=== PATIENT | female | born 2000 | race African-American/Black ===

== ENCOUNTER 2019-03-31 13:58 | Emergency (ER) | payer OTHER, SELFPAY ==
[2019-03-31 14:50] VITALS: BP 124/72; PULSE 82; RESP 18; TEMP 36.9; O2SAT 100; BMI 31.6
[2019-03-31 15:32] LABS: Influenza A - CEPHEID Flu A NEGATIVE (NEGATIVE); Influenza B - CEPHEID Flu B NEGATIVE (NEGATIVE)
--- NOTE | 2019-03-31 19:58 | ED.URI ---
HPI - URI/Sore Throat General Chief Complaint: Upper Respiratory Symptoms Stated Complaint: Cold Source: patient Mode of arrival: Ambulatory Limitations: no limitations History of Present Illness HPI Narrative: The patient is a 19-year-old female nonsmoker with a chief complaint of cold for several days. She has a 3 day history of flu-like symptoms, denies vomiting or diarrhea, complains of slight nausea. Complains of low-grade fevers as well as nasal congestion and ear pressure. She also complains of sore throat. She states that she has a cough, that is nonproductive or occasionally productive. Denies chest pain or shortness of breath. Has not taken anything at home to feel better. States that she has had several loose stools but is unable to give a sample in the emergency department Related Data Allergies Allergy/AdvReac Type Severity Reaction Status Date / Time No Known Drug Allergies Allergy Verified 03/31/19 14:50 Review of Systems Review of Systems Narrative: GENERAL: See HPI HEENT: See HPI RESPIRATORY: Denies dyspnea, cough, wheezing, hemoptysis, sputum. CARDIOVASCULAR: Denies chest pain, palpitations, orthopnea, edema, GASTROINTESTINAL: See HPI : Denies dysuria, frequency, incontinence, hematuria, urinary retention. MUSCULOSKELETAL: denies weakness, joint pain, or bony pain SKIN: Denies rash, skin lesions, or other NEUROLOGIC: Denies weakness, headache, numbness, change in speech, confusion, seizures, incoordination. PSYCHIATRIC: No concerning psychosocial issues. 12 point review of systems is negative except for those stated above Patient History Social History Smoking Status: Never smoker Smoking Status: Never smoker Substance Use Type: does not use Exam Narrative Exam Narrative: GENERAL: This is a well-nourished, well-developed patient, in no acute distress HEAD: Atraumatic. Normocephalic. No temporal or scalp tenderness. EYES: Pupils equal round and reactive. Extraocular motions intact. No scleral icterus. No injection or drainage. ENT: Nose without bleeding, purulent drainage or septal hematoma. Throat without erythema, tonsillar hypertrophy or exudate. Uvula midline. Airway patent. Bilateral TMs pearly naik. NECK: Trachea midline. No JVD or lymphadenopathy. Supple, nontender, no meningeal signs. CARDIOVASCULAR: Regular rate and rhythm without murmurs, gallops, or rubs. RESPIRATORY: Clear to auscultation. Breath sounds equal bilaterally. No wheezes, rales, or rhonchi. Occasional cough. No increased respiratory effort. Speaking full sentences. GASTROINTESTINAL: Abdomen soft, non-tender, nondistended. No hepato-splenomegaly, or palpable masses. No guarding. Active bowel sounds. EXTREMITIES: No clubbing, cyanosis, or edema. No joint tenderness, effusion, or edema noted. BACK: Nontender without deformity or crepitance. No flank tenderness. NEURO: AOx3. Steady gait. Interactive. Age appropriate. SKIN: No rash or erythema on visible skin Initial Vital Signs Initial Vital Signs: Vital Signs Temperature 98.4 F 03/31/19 14:50 Pulse Rate 82 03/31/19 14:50 Respiratory Rate 18 03/31/19 14:50 Blood Pressure 124/72 03/31/19 14:50 Pulse Oximetry 100 03/31/19 14:50 Course Orders Ordered: ED Orders 03/31/19 14:50 Flu test [Influenza A & B (PCR)] Stat Vital Signs Vital signs: Vital Signs - 8 hr 03/31/19 14:50 Temperature 98.4 F Pulse Rate 82 Respiratory Rate 18 Blood Pressure 124/72 Pulse Oximetry 100 [facility] - URI/Sore Throat Lab Data Labs: Lab Results 03/31/19 Range/Units 14:50 Influenza A (RT-PCR) Flu a negative (NEGATIVE) Influenza B (RT-PCR) Flu b negative (NEGATIVE) [facility] Narrative Medical decision making narrative: The patient is 19-year-old female who presents with 3 day history of congestion, fevers etcetera. She is negative for flu. Her strep is negative. Throat cultures pending at this time. I discussed at length use of [id number] remedies for symptom control. Encourage PCP follow-up in the next few days. Discussed coming back to the ER for any acute concerns. Patient did feel better with the Zofran, so I did send her prescription in. Work note given. Patient has no questions or concerns upon discharge and states understanding of return precautions as well as follow-up care. Discharge Plan Departure Patient Disposition: Left Without Being Seen Clinical Impression: Patient left without being seen Discharge Date/Time: 03/31/19 19:11
== END 2019-03-31 19:11 | disposition left against medical advice (07) ==
PROVIDERS: Emergency Medicine; Emergency Provider Nurse Practitioner Family
DX: R50.9 Fever, unspecified (principal); R09.81 Nasal congestion
CPT/HCPCS: 87502; 99281